=== PATIENT | female | born 1975 ===

== ENCOUNTER 2020-12-15 15:20 | Outpatient (REF) | payer OTHER, SELFPAY ==
[2020-12-16 09:53] LABS: CT PCR NOT DETECTED (Not Detect.); NG PCR NOT DETECTED (Not Detect.)
[2020-12-18 04:21] LABS: HPV mRNA E6/E7 rflx Not Detected (Not Detected)
== END 2020-12-15 15:21 | disposition home or self-care (01) ==
LOC: HO.LAB 15:20
PROVIDERS: Visit Provider Obstetrics & Gynecology
DX: Z01.411 Encounter for gynecological examination (general) (routine) with abnormal findings (principal); Z11.51 Encounter for screening for human papillomavirus (HPV); Z11.3 Encounter for screening for infections with a predominantly sexual mode of transmission; R10.2 Pelvic and perineal pain; N64.3 Galactorrhea not associated with childbirth; N91.2 Amenorrhea, unspecified; R92.8 Other abnormal and inconclusive findings on diagnostic imaging of breast
CPT/HCPCS: 81003; 87491; 87591; 87624; 88142

== ENCOUNTER 2020-12-15 16:25 | Outpatient (REF) | payer OTHER, SELFPAY ==
[2020-12-15 18:03] LABS: HCG Quantitative < 2 mIU/mL; TSH reflex Free T4 1.71 uIU/mL (0.32-4.0)
[2020-12-16 13:42] LABS: Prolactin 6.6 ng/mL
== END 2020-12-15 16:26 | disposition home or self-care (01) ==
LOC: HO.LAB 16:25
PROVIDERS: PCP Physician Assistant Medical; Visit Provider Obstetrics & Gynecology
DX: N91.2 Amenorrhea, unspecified (principal)
CPT/HCPCS: 36415; 84146; 84443; 84702

== ENCOUNTER 2021-01-10 15:40 | Outpatient (REF) | payer OTHER, SELFPAY ==
--- NOTE | ~2021-01-10 | MM_ITS ---
EXAMINATION: MM SCREENING DIGITAL BREAST TOMOSYNTHESIS, BILATERAL CLINICAL INFORMATION: Screening. Asymptomatic. The lifetime risk of breast cancer based on the Tyrer-Cuzick Model is 14%. COMPARISON: Outside mammography: 06/12/2019, 11/22/2017 ([facility]) TECHNIQUE: Digital breast tomosynthesis is performed in both the craniocaudal and mediolateral oblique views along with computer-aided detection (CAD). Synthesized 2D images are generated from the tomosynthesis. FINDINGS: There are scattered areas of fibroglandular density (ACR BI-RADS breast composition Category b). There are no significant masses, abnormal calcifications, or other abnormalities. The axilla and skin contours are unremarkable. No significant changes from prior outside exams. MM/MM tomosynthesis screening BI IMPRESSION: No mammographic evidence of malignancy. ASSESSMENT: BI-RADS 1: Negative RECOMMENDATION: Routine annual mammography screening. This patient's information was entered into a reminder system with a target due date for their next mammogram.
== END 2021-01-10 15:41 | disposition home or self-care (01) ==
LOC: HO.MAMMO 15:40
PROVIDERS: Visit Provider Physician Assistant Medical
DX: Z12.31 Encounter for screening mammogram for malignant neoplasm of breast (principal)
CPT/HCPCS: 77063; 77067

== ENCOUNTER → 2021-04-11 14:54 | Outpatient (BNVA) | payer OTHER, SELFPAY | PROVIDERS: PCP Physician Assistant Medical; Visit Provider Obstetrics & Gynecology | DX: N95.0 Postmenopausal bleeding (principal); R23.2 Flushing | CPT/HCPCS: 99212 ==

== ENCOUNTER 2021-05-01 15:22 | Outpatient (REF) | payer OTHER, SELFPAY ==
--- NOTE | ~2021-05-01 | US_ITS ---
EXAMINATION: US PELVIS CLINICAL INFORMATION: Postmenopausal bleeding COMPARISON: None TECHNIQUE: Ultrasound of the pelvis is performed using both transabdominal and transvaginal transducers along with Doppler. Transvaginal imaging is performed due to inadequate visualization transabdominally. FINDINGS: Uterus: The uterus is anteverted and measures 8.7 x 1.8 x 6.6 cm. Small posterior 7 mm lesion most consistent with a tiny fibroid appears calcified. The double wall endometrial thickness is 0.4 mm. The uterus is otherwise smooth in contour and has normal myometrial echogenicity. Incidental nabothian cysts Adnexa: Both ovaries are visualized. There is normal color flow to the adnexa. There is no ovarian torsion. There is no pelvic ascites or fluid collection. Right ovary is not visualized. Left ovary 3 mL in volume. Trace physiologic free fluid. US/US pelvic and transvaginal IMPRESSION: Uterus and endometrium essentially normal. Incidental tiny calcified fibroid. Right ovary not seen. No gross adnexal lesion.
== END 2021-05-01 15:23 | disposition home or self-care (01) ==
LOC: HO.US 15:22
PROVIDERS: PCP Advanced Practice Midwife; Visit Provider Obstetrics & Gynecology
DX: N95.0 Postmenopausal bleeding (principal)
CPT/HCPCS: 76830; 76856

== ENCOUNTER → 2021-05-08 14:11 | Outpatient (BNVA) | payer OTHER, SELFPAY | PROVIDERS: PCP Physician Assistant Medical; Visit Provider Obstetrics & Gynecology ==

== ENCOUNTER 2021-06-13 08:34 | Outpatient (REF) | payer OTHER, SELFPAY | END 2021-06-13 08:35 | disposition home or self-care (01) | LOC: HO.LAB 08:34 | PROVIDERS: PCP Physician Assistant Medical; Visit Provider Obstetrics & Gynecology | DX: N95.0 Postmenopausal bleeding (principal); J45.909 Unspecified asthma, uncomplicated; Z98.51 Tubal ligation status | CPT/HCPCS: 58100; 88305 ==

== ENCOUNTER 2021-06-19 14:39 | Outpatient (REF) | payer OTHER, SELFPAY ==
[2021-06-20 03:00] LABS: CT PCR NOT DETECTED (Not Detect.); NG PCR NOT DETECTED (Not Detect.)
[2021-06-20 09:05] LABS: BV Int Neg Control Negative (Negative); BV Int Pos Control Positive (Positive)
== END 2021-06-19 14:40 | disposition home or self-care (01) ==
LOC: HO.LAB 14:39
PROVIDERS: PCP Physician Assistant Medical; Visit Provider Obstetrics & Gynecology
DX: N73.0 Acute parametritis and pelvic cellulitis (principal)
CPT/HCPCS: 87086; 87480; 87491; 87510; 87591; 87660; 99212

== ENCOUNTER → 2021-07-18 13:59 | Outpatient (BNVA) | payer OTHER, SELFPAY | PROVIDERS: PCP Physician Assistant Medical; Visit Provider Obstetrics & Gynecology | DX: R31.29 Other microscopic hematuria (principal); R10.2 Pelvic and perineal pain | CPT/HCPCS: 99212 ==

== ENCOUNTER 2021-08-11 08:57 | Outpatient (REF) | payer OTHER, SELFPAY ==
--- NOTE | ~2021-08-11 | CT_ITS ---
EXAMINATION: CT ABDOMEN AND PELVIS WITHOUT AND WITH CONTRAST CLINICAL INFORMATION: Microscopic hematuria COMPARISON: None TECHNIQUE: Multidetector volumetric imaging was performed of the abdomen and pelvis before and after the IV administration of 85 mL of Omnipaque 350 intravenous contrast. Sagittal and coronal reformatted images were obtained on the technologist's workstation. This CT examination was performed using dose optimization techniques as appropriate, variously including the following: *Automated exposure control *Adjustment of mA and/or kV according to patient size (this includes techniques or standardized protocols for targeted exams where dose is matched to indication/reason for exam; i.e. extremities or head) *Use of iterative reconstruction technique DLP: 1489 mGy-cm FINDINGS: LUNG BASES: The visualized lung bases are unremarkable. LIVER, GALLBLADDER, AND BILIARY TREE: The liver is normal in size, shape, and attenuation. No focal hepatic lesion or biliary ductal dilatation is present. The gallbladder is unremarkable with no evidence of radiopaque gallstones, gallbladder wall thickening, or obvious pericholecystic inflammatory changes. PANCREAS: Unremarkable SPLEEN: Unremarkable ADRENAL GLANDS: Unremarkable KIDNEYS AND URETERS: The kidneys are normal in size, shape, and attenuation. No hydronephrosis, hydroureter, or calculi seen. There are multiple small left renal cysts. Largest measures 1 cm. No imaging follow-up needed. The collecting systems are normal. The ureters are normal. BLADDER: Unremarkable GASTROINTESTINAL TRACT: The small and large bowel are unremarkable. The appendix is unremarkable. ABDOMINAL WALL: No significant hernia is appreciated. LYMPH NODES: Normal VASCULAR: Unremarkable PELVIC VISCERA: Unremarkable OSSEOUS STRUCTURES: Unremarkable CT/CT abdomen pelvis wo/w con IMPRESSION: Small left renal cysts otherwise unremarkable exam. Fleischner guidelines were followed.
[2021-08-11] MEDS: iohexoL 350 MG/ML 100 ML INFUS..BTL IV (10:17)
== END 2021-08-11 08:58 | disposition home or self-care (01) ==
LOC: HO.CT 08:57
PROVIDERS: PCP Physician Assistant Medical; Visit Provider Obstetrics & Gynecology
DX: R31.29 Other microscopic hematuria (principal); R10.2 Pelvic and perineal pain
CPT/HCPCS: 74178; Q9967

== ENCOUNTER → 2021-11-24 14:42 | Outpatient (BNVA) | payer OTHER, SELFPAY | PROVIDERS: PCP Physician Assistant Medical | DX: R31.29 Other microscopic hematuria (principal) | CPT/HCPCS: 99202 ==

== ENCOUNTER 2022-01-29 15:57 | Outpatient (REF) | payer OTHER, SELFPAY ==
--- NOTE | ~2022-01-29 | US_ITS ---
EXAMINATION: US RETROPERITONEAL LIMITED (RENAL ONLY) CLINICAL INFORMATION: Other microscopic hematuria. COMPARISON: CT abdomen and pelvis 08/11/2021. TECHNIQUE: Real-time imaging of the kidneys. FINDINGS: RIGHT KIDNEY: 12.7 x 4.3 x 5.0 cm (SAG x AP x TRV). The kidney is normal in size, contour, and echogenicity. Renal cortical thickness is normal. No calculi or focal parenchymal lesions. No hydronephrosis. LEFT KIDNEY: 12.6 x 6.1 x 5.4 cm (SAG x AP x TRV). The kidney is normal in size, contour, and echogenicity. Renal cortical thickness is normal. No renal calculi or hydronephrosis. There is anechoic cyst midpole medially measuring 1.6 x 1.1 x 1.1 cm and 0.9 x 0.8 x 0.9 seen. There is an echogenic lesion in the midpole cortex measuring 0.7 x 1.0 x 0.7 cm, likely a small angiomyolipoma. US/US renal BI IMPRESSION: Small angiomyolipoma and 2 small cysts in the midpole left kidney. No echogenic stones or hydronephrosis seen.
== END 2022-01-29 15:58 | disposition home or self-care (01) ==
LOC: HO.US 15:57
DX: R31.29 Other microscopic hematuria (principal)
CPT/HCPCS: 76775

== ENCOUNTER 2023-02-13 14:34 | Outpatient (REF) | payer OTHER, SELFPAY | END 2023-02-13 14:35 | disposition home or self-care (01) | LOC: HO.US 14:34 | PROVIDERS: Visit Provider Urology | DX: R31.29 Other microscopic hematuria (principal) | CPT/HCPCS: 76775 ==

== ENCOUNTER 2023-02-22 13:06 | Outpatient (AMB) | payer OTHER, SELFPAY ==
--- NOTE | 2023-02-22 13:11 | A.OFFVIS_ITS ---
Intake Intake Visit Reasons: one yr renal cysts/hematuria follow up w US Intake Note: Patient presents today for a 1 year follow-up Renal Cysts/Hematuria & US, completed on 02/13/2023: Meds- None Allergies to Antibiotic- No Known Allergies Blood Thinner- None Dinkey Brakeman Required: No Accompanied by: Self / Same As Patient Allergies No Known Allergies Allergy (Verified 11/24/21 15:05) Medication List - Last Reconciled 02/22/23 by Garo Szymanski MD ibuprofen 600 mg PO Q8H PRN loratadine (Claritin) 10 mg PO DAILY HPI one yr renal cysts/hematuria follow up w US HPI Details Rukhsana Mendoza is a 47-year-old female who presents today to the office for a one-year follow up of renal cyst and hematuria. 02/22/23: The patient is here for a follow-up. She was seen previously in the office by ARTI Garcia for microscopic hematuria. She returned today after having renal US on 02/13/23. I reviewed the result with the patient. Evaluation today-- Blood: 10 Sheldon/uL, leukocytes: 0 Anabell/uL. Urine protein: 0 mg/dL. 02/13/23: US RETROPERITONEAL result revi ewed: Sub-centimeter fat density lesion that is noted as well as a 2.1 cm simple cyst in the left kidney. Right kidney: The kidney is normal. No calculi or focal parenchymal lesions. No hydronephrosis. Left kidney: The kidney is normal. No calculi or focal parenchymal lesions. No h ydronephrosis. A 7 x 8 x 6 mm benign, fat-containing angiomyolipoma was noted. Plan The patient will follow up in one year with renal US prior. [facility] Medical History Asthma Surgical History Tubal ligation status Family History Sister Uterine cancer Social History Alcohol intake: current Patient Tobacco Use Status: Never used Tobacco Female Reproductive History Menstrual Age of Menarche: 13 Review of Systems Const All systems reviewed & are unremarkable except as noted in HPI and below Reports no additional complaints Eyes Reports no additional complaints ENT Reports no additional complaints Card Reports no additional complaints Resp Reports no additional complaints GI Reports no additional complaints Musc Reports no additional complaints Skin/Breast Reports system reviewed and no additional complaints, except as documented Neuro Reports no additional complaints Psych Reports no additional complaints Endo Reports no additional complaints Arnol/Lymph Reports no additional complaints Aller/Immun Reports no additional complaints Physical Exam Const General: healthy appearing, no acute distress and well developed Orientation/consciousness: patient oriented x3 HEENT Head: Yes normocephalic and Yes atraumatic Eyes Conjunctivae: conjunctivae normal Neck Neck: Yes normal visual inspection Chest Chest palpation & inspection: normal inspection of the chest Resp Effort & Inspection: normal respiratory effort Cardio Rate: regular rate GI Inspection: Yes normal to inspection Skin General skin exam: no rashes or lesions noted Neuro General: patient oriented x3 Extrem General: Yes no pedal edema Psych Appearance: grossly normal Affect: normal affect Results AMB Urinalysis, Automated UA Leukoctes 0 Anabell/uL Last Edit by SARAH Noe on 02/22/23 13:28 UA Nitrite Negative Last Edit by SARAH Noe on 02/22/23 13:28 UA Urobilinogen 0.2 mg/dL Last Edit by SARAH Noe on 02/22/23 13:2 8 UA Protein 0 mg/dL Last Edit by SARAH Noe on 02/22/23 13:28 UA pH 6.0 Last Edit by SARAH Noe on 02/22/23 13:28 UA Blood 10 Sheldon/uL Last Edit by SARAH Noe on 02/22/23 13:28 UA Specific [place] 1.025 Last Edit by SARAH Noe on 02/22/23 13: 28 UA Ketone Negative Last Edit by SARAH Noe on 02/22/23 13:28 UA Bilirubin 0 mg/dL Last Edit by SARAH Noe on 02/22/23 13:28 UA Glucose 0 mg/dL Last Edit by SARAH Noe on 02/22/23 13:28 Results Reviewed Results Reviewed: Laboratory Last Values Urine pH (Auto) 6.0 02/22/23 13:20 Specific [place] (Auto) 1.025 02/22/23 13:20 Urine Protein (Auto) 0 mg/dL 02/22/23 13:20 Glucose (UA)(Auto) 0 mg/dL 02/22/23 13:20 Urine Ketones (Auto) Negative 02/22/23 13:20 Urine Blood (Auto) 10 Sheldon/uL 02/22/23 13:20 Urine Nitrite (Auto) Negative 02/22/23 13:20 Urine Bilirubin (Auto) 0 mg/dL 02/22/23 13:20 Urine Urobilinogen (Auto) 0.2 mg/dL 02/22/23 13:20 Leukocyte Esterase (Auto) 0 Anabell/uL 02/22/23 13:20 02/13/23: US RETROPERITONEAL LIMITED (RENAL ONLY) FINDINGS: RIGHT KIDNEY: 13.0 x 4.4 x 5.4 cm (SAG x AP x TRV). The kidney is normal in size, contour, and echogenicity. Renal cortical thickness is normal. No calculi or focal parenchymal lesions. No hydronephrosis. LEFT KIDNEY: 13.2 x 6.0 x 5.7 cm (SAG x AP x TRV). The kidney is normal in size, contour, and echogenicity. Renal cortical thickness is normal. No renal calculi or hydronephrosis. At the interpolar aspect, a 7 x 8 x 6 mm benign, fat- containing angiomyolipoma is redemonstrated, consistent with prior CT findings of 08/11/2021 (5:44 and 7:139). The interpolar aspect, a 2.1 cm benign, simple cyst is in, for which no imaging follow-up is recommended. IMPRESSION: An 8 mm benign, fat density and a myelolipoma is redemonstrated, consistent with CT findings dated 08/11/2021 Assessment & Plan Assessment & Plan (1) Angiomyolipoma of left kidney: Code(s): D17.71 - Benign lipomatous neoplasm of kidney (2) Renal cyst, acquired, left: Code(s): N28.1 - Cyst of kidney, acquired Plan The patient will follow up in one year with renal US prior. Orders: Orders AMB Urinalysis Automated 02/22/23 Z13.9 - Encounter for screening, unspecified US renal BI 10 Months D17.71 - Benign lipomatous neoplasm of kidney, N28.1 - Cyst of kidney, acquired Patient Instructions: The patient had an opportunity to ask questions regarding treatment plan. All questions were answered. Imaging, Laboratory studies and physical exam results were discussed and reviewed in detail. No major barriers to understanding were identified. The patient expressed understanding and agreement with the above treatment plan. The patient is aware they should contact our office by phone for worsening of their current condition or the appearance of new symptoms. Compliance is encouraged with any medications and followup testing that is ordered. It is a privilege to be allowed the opportunity to participate in the urologic care of your patient. If you have any questions or concerns regarding treatment for the above conditions please do not hesitate to contact me. The office telephone contact is [phone]. This note is constructed in part using voice recognition software. While every effort has been made to ensure accuracy erecting crane operator errors may have been included. Yours sincerely, Garo Szymanski MD Coding Level of Care Code Est Pt Level 3 (98851) Diagnoses Angiomyolipoma of left kidney D17.71 Renal cyst, acquired, left N28.1
== END 2023-02-22 13:48 | disposition home or self-care (01) ==
PROVIDERS: PCP Physician Assistant Medical; Visit Provider Urology
DX: D17.71 Benign lipomatous neoplasm of kidney (principal); N28.1 Cyst of kidney, acquired
CPT/HCPCS: 99213

== ENCOUNTER → 2023-02-22 13:06 | Outpatient (BNVA) | payer OTHER, SELFPAY | PROVIDERS: Visit Provider Urology | DX: D17.71 Benign lipomatous neoplasm of kidney (principal); N28.1 Cyst of kidney, acquired | CPT/HCPCS: 81003; 99212 ==

== ENCOUNTER 2023-12-17 15:14 | Outpatient (REF) | payer OTHER, SELFPAY ==
--- NOTE | ~2023-12-17 | US_ITS ---
EXAMINATION: US RETROPERITONEAL LIMITED (RENAL ONLY) CLINICAL INFORMATION: Benign lipomatous neoplasm of kidney. COMPARISON: Renal ultrasound 02/13/2023 and 01/29/2022. CT abdomen and pelvis 08/11/2021. TECHNIQUE: Real-time imaging of the kidneys. Limited visualization due to bowel gas. FINDINGS: RIGHT KIDNEY: 13.0 x 3.8 x 4.2 cm (SAG x AP x TRV). No hydronephrosis. No renal calculi. Renal cortical thickness is normal. Limited visualization. LEFT KIDNEY: 12.6 x 5.4 x 5.6 cm (SAG x AP x TRV). No hydronephrosis. No renal calculi. Renal cortical thickness is normal. Limited visualization. A 1.8 cm midpole cyst with benign features. There is no indication for follow-up imaging. A 0.7 cm midpole cortical echogenic focus redemonstrated measuring 0.8 cm on ultrasound of 02/13/2023, previously characterized as a likely angiomyolipoma. US/US renal BI IMPRESSION: No hydronephrosis. No renal calculi. Stable 7 mm left renal echogenic lesion, likely an angiomyolipoma.
== END 2023-12-17 15:15 | disposition home or self-care (01) ==
LOC: HO.HMGCX 15:14
PROVIDERS: PCP Physician Assistant Medical; Visit Provider Urology
DX: D17.71 Benign lipomatous neoplasm of kidney (principal); N28.1 Cyst of kidney, acquired
CPT/HCPCS: 76775

== ENCOUNTER 2024-02-26 13:42 | Outpatient (AMB) | payer OTHER, SELFPAY ==
--- NOTE | 2024-02-26 13:43 | A.OFFVIS_ITS ---
Intake Visit Reasons: 1y/US Intake Note: Patient is present for 1y/US Urology Medication:NONE Antibiotic Allergy:NONE Blood Thinner:NONE Human Resources Manager Manufacturing Required: No Allergies No Known Allergies Allergy (Verified 02/26/24 13:44) HPI Comments Details: 02/26/24--Rukhsana Mendoza is a 48-year-old female who presents today to the office for a one-year follow up of renal cyst and microscopic hematuria. Discussed FU renal US 12/17/23:Findings-- A 1.8 cm midpole cyst with benign features. There is no indication for follow-up imaging. A 0.7 cm midpole cortical echogenic focus redemonstrated measuring 0.8 cm on ultrasound of 02/13/2023, previously characterized as a likely angiomyolipoma. Plan FU prn. Review of chart: 02/22/23: The patient is here for a follow-up. She was seen previously in the office by ARTI Garcia for microscopic hematuria. She returned today after having renal US on 02/13/23. I reviewed the result with the patient. Evaluation today-- Blood: 10 Sheldon/uL, leukocytes: 0 Anabell/uL. Urine protein: 0 mg/dL. 02/13/23: US RETROPERITONEAL result reviewed: Sub-centimeter fat density lesion that is noted as well as a 2.1 cm simple cyst in the left kidney. Right kidney: The kidney is normal. No calculi or focal parenchymal lesions. No hydronephrosis. Left kidney: The kidney is normal. No calculi or focal parenchymal lesions. No hydronephrosis. A 7 x 8 x 6 mm benign, fat-containing angiomyolipoma was noted. Plan-The patient will follow up in one year with renal US prior. [facility] Medical History Asthma Surgical History Tubal ligation status Family History Sister Uterine cancer Social History Alcohol intake: current Patient Tobacco Use Status: Never used Tobacco Female Reproductive History Menstrual Age of Menarche: 13 Review of Systems Const All systems reviewed & are unremarkable except as noted in HPI and below Reports no additional complaints Eyes Reports no additional complaints ENT Reports no additional complaints Card Reports no additional complaints Resp Reports no additional complaints GI Reports no additional complaints Reports as per HPI Musc Reports no additional complaints Skin/Breast Reports system reviewed and no additional complaints, except as documented Neuro Reports no additional complaints Psych Reports no additional complaints Endo Reports no additional complaints Arnol/Lymph Reports no additional complaints Aller/Immun Reports no additional complaints Results AMB Urinalysis, Automated UA Leukoctes 70 Anabell/uL Last Edit by CHELE Ramirez on 02/26/24 14:04 UA Nitrite Negative Last Edit by Mirella Medina CCM on 02/26/24 14:04 UA Urobilinogen 0.2 mg/dL Last Edit by Mirella Medina CCM on 02/26/24 14:0 4 UA Protein 15 mg/dL Last Edit by Mirella Medina CCM on 02/26/24 14:04 UA pH 6.0 Last Edit by Mirella Medina [facility] on 02/26/24 14:04 UA Blood 25 Sheldon/uL Last Edit by Mirella Medina CCM on 02/26/24 14:04 UA Specific [place] 1.025 Last Edit by Mirella Medina CCM on 02/26/24 14: 04 UA Ketone Negative Last Edit by Mirella Medina CCM on 02/26/24 14:04 UA Bilirubin 0 mg/dL Last Edit by Mirella Medina [facility] on 02/26/24 14:04 UA Glucose 0 mg/dL Last Edit by Mirella Medina [facility] on 02/26/24 14:04 Results Reviewed Results Reviewed: Laboratory Last Values Urine pH (Auto) 6.0 02/26/24 14:02 Specific [place] (Auto) 1.025 02/26/24 14:02 Urine Protein (Auto) 15 mg/dL 02/26/24 14:02 Glucose (UA)(Auto) 0 mg/dL 02/26/24 14:02 Urine Ketones (Auto) Negative 02/26/24 14:02 Urine Blood (Auto) 25 Sheldon/uL 02/26/24 14:02 Urine Nitrite (Auto) Negative 02/26/24 14:02 Urine Bilirubin (Auto) 0 mg/dL 02/26/24 14:02 Urine Urobilinogen (Auto) 0.2 mg/dL 02/26/24 14:02 Leukocyte Esterase (Auto) 70 Anabell/uL 02/26/24 14:02 Date of Service: 12/17/23 US RETROPERITONEAL LIMITED (RENAL ONLY) CLINICAL INFORMATION: Benign lipomatous neoplasm of kidney. COMPARISON: Renal ultrasound 02/13/2023 and 01/29/2022. CT abdomen and pelvis 08/11/2021. TECHNIQUE: Real-time imaging of the kidneys. Limited visualization due to bowel gas. FINDINGS: RIGHT KIDNEY: 13.0 x 3.8 x 4.2 cm (SAG x AP x TRV). No hydronephrosis. No renal calculi. Renal cortical thickness is normal. Limited visualization. LEFT KIDNEY: 12.6 x 5.4 x 5.6 cm (SAG x AP x TRV). No hydronephrosis. No renal calculi. Renal cortical thickness is normal. Limited visualization. A 1.8 cm midpole cyst with benign features. There is no indication for follow-up imaging. A 0.7 cm midpole cortical echogenic focus redemonstrated measuring 0.8 cm on ultrasound of 02/13/2023, previously characterized as a likely angiomyolipoma. IMPRESSION: No hydronephrosis. No renal calculi. Stable 7 mm left renal echogenic lesion, likely an angiomyolipoma. 02/13/23: US RETROPERITONEAL LIMITED (RENAL ONLY) FINDINGS: RIGHT KIDNEY: 13.0 x 4.4 x 5.4 cm (SAG x AP x TRV). The kidney is normal in size, contour, and echogenicity. Renal cortical thickness is normal. No calculi or focal parenchymal lesions. No hydronephrosis. LEFT KIDNEY: 13.2 x 6.0 x 5.7 cm (SAG x AP x TRV). The kidney is normal in size, contour, and echogenicity. Renal cortical thickness is normal. No renal calculi or hydronephrosis. At the interpolar aspect, a 7 x 8 x 6 mm benign, fat- containing angiomyolipoma is redemonstrated, consistent with prior CT findings of 08/11/2021 (5:44 and 7:139). The interpolar aspect, a 2.1 cm benign, simple cyst is in, for which no imaging follow-up is recommended. IMPRESSION: An 8 mm benign, fat density and a myelolipoma is redemonstrated, consistent with CT findings dated 08/11/2021 Assessment & Plan Assessment & Plan (1) Angiomyolipoma of left kidney: Code(s): D17.71 - Benign lipomatous neoplasm of kidney (2) Renal cyst, acquired, left: Code(s): N28.1 - Cyst of kidney, acquired Plan Kidneys stable- fu prn Orders: Orders AMB Urinalysis Automated Today Z13.9 - Encounter for screening, unspecified Patient Instructions: The patient had an opportunity to ask questions regarding treatment plan. The patient expressed understanding and agreement with the above treatment plan. The patient is aware they should contact our office by phone for worsening of their current condition or the appearance of new symptoms. Compliance is encouraged with any medications and followup testing that is ordered. It is a privilege to be allowed the opportunity to participate in the urologic care of your patient. If you have any questions or concerns regarding treatment for the above conditions please do not hesitate to contact me. The office telephone contact is [phone]. This note is constructed in part using voice recognition software. While every effort has been made to ensure accuracy front elevator operator errors may have been included. Yours sincerely, Garo Szymanski MD Coding Level of Care Code Est Pt Level 4 (10415) Diagnoses Angiomyolipoma of left kidney D17.71 Renal cyst, acquired, left N28.1
== END 2024-02-26 14:36 | disposition home or self-care (01) ==
PROVIDERS: PCP Physician Assistant Medical; Visit Provider Urology
DX: D17.71 Benign lipomatous neoplasm of kidney (principal); N28.1 Cyst of kidney, acquired; Z13.9 Encounter for screening, unspecified
CPT/HCPCS: 99214

== ENCOUNTER → 2024-02-26 13:42 | Outpatient (BNVA) | payer OTHER, SELFPAY | PROVIDERS: PCP Physician Assistant Medical; Visit Provider Urology | DX: N28.1 Cyst of kidney, acquired (principal); D17.71 Benign lipomatous neoplasm of kidney | CPT/HCPCS: 81003; 99212 ==